=== PATIENT | male | born 1980 | race African-American/Black ===

== ENCOUNTER 2017-11-13 09:02 | Emergency (ER) | payer SELFPAY ==
[2017-11-13] MEDS ORDERED: Metoclopramide 10 MG/2 ML SDV IVPUSH ONE (09:20)
[2017-11-13] MEDS ORDERED: Sodium Chloride 0.9% 10 ML Syringe FLUSH PRN (09:20)
[2017-11-13] MEDS ORDERED: Sodium Chloride 0.9% 1,000 ML IV STA (09:20)
[2017-11-13] MEDS ORDERED: HYDROmorphone 1 MG/ML Syringe IVPUSH ONE (09:21)
[2017-11-13] MEDS ORDERED: Metoclopramide 10 MG/2 ML SDV IM ONE (09:40)
[2017-11-13] MEDS ORDERED: HYDROmorphone 1 MG/ML Syringe IM ONE ×2 (09:40→10:33)
--- NOTE | 2017-11-13 09:43 | EDM.PDOC ---
ED HPI GENERAL MEDICAL PROBLEM - General Chief Complaint: Gastrointestinal Problem Stated Complaint: [facility] Time Seen by Provider: 11/13/17 09:16 Source of Information: Reports: Patient, EMS History Limitations: Reports: No Limitations - History of Present Illness INITIAL COMMENTS - FREE TEXT/NARRATIVE: The patient presents with nausea, abdominal pain and diarrhea. He has a history of Crohn's disease for the past 20 years. He had a bowel resection about 5 years ago and he was doing good until about 6 months ago and he started having more problems. He last had a flair up over a month ago. He recently moved to the area. He has 10/10 abdominal pain in the RLQ. He has no fever, chills, cough, chest pain, shortness of breath or dysuria. Onset: Gradual Duration: Day(s): (Last night) Location: Reports: Abdomen Quality: Reports: Sharp Severity: Severe Improves with: Reports: None Worsens with: Reports: None Associated Symptoms: Reports: Nausea/Vomiting. Denies: Chest Pain, Cough, Fever /Chills, Headaches, Shortness of Breath Right Lower Abdomen Pain Score (Numeric/FACES): 10 - Related Data Allergies Allergy/AdvReac Type Severity Reaction Status Date / Time Iodinated Contrast- Oral and Allergy Tachycardia Verified 11/13/17 09:07 IV Dye ondansetron Allergy Edema Verified 11/13/17 09:07 [From Zofran (as hydrochloride)] Home Meds: Home Meds Ciprofloxacin HCl [Cipro] 500 mg PO BID #14 tablet 11/13/17 [Rx] Prednisone [IJD: predniSONE] 40 mg PO WITHBREAKFAST #10 tab 11/13/17 [Rx] Promethazine [Phenergan] 25 mg PO Q4H PRN #20 tab 11/13/17 [Rx] metroNIDAZOLE [Flagyl] 500 mg PO Q12H #14 tab 11/13/17 [Rx] oxyCODONE HCl/Acetaminophen [Percocet 5-325 mg Tablet] 1 - 2 each PO Q6HR PRN # 20 tablet 11/13/17 [Rx] Past Medical History Cardiovascular History: Reports: Other (See Below) Other Cardiovascular History: SVT Gastrointestinal History: Reports: Chronic Diarrhea, Other (See Below) Other Gastrointestinal History: Crohns Genitourinary History: Reports: Renal Calculus - Past Surgical History GI Surgical History: Reports: Other (See Below) Other GI Surgeries/Procedures: Bowel resection Male Surgical History: Reports: Lithotripsy ([facility]) Social & Family History - Tobacco Use Smoking Status *Q: Never Smoker Second Hand Smoke Exposure: No - Caffeine Use Caffeine Use: Reports: Soda - Recreational Drug Use Recreational Drug Use: No ED ROS GENERAL - Review of Systems Review Of Systems: See Below Constitutional: Reports: No Symptoms HEENT: Reports: No Symptoms Respiratory: Reports: No Symptoms Cardiovascular: Reports: No Symptoms Endocrine: Reports: No Symptoms GI/Abdominal: Reports: Abdominal Pain, Diarrhea, Nausea. Denies: Vomiting : Reports: No Symptoms Musculoskeletal: Reports: No Symptoms ED EXAM, GI/ABD - Physical Exam Exam: See Below Exam Limited By: No Limitations General Appearance: Alert, No Apparent Distress Ears: Normal External Exam Nose: Normal Inspection Head: Atraumatic, Normocephalic Neck: Normal Inspection Respiratory/Chest: No Respiratory Distress, Lungs Clear, Normal Breath Sounds Cardiovascular: Regular Rate, Rhythm, No Edema, No Murmur GI/Abdominal Exam: Soft, No Organomegaly, No Mass, Tender (Moderate tenderness to the mid abdomen) Back Exam: Normal Inspection Extremities: Normal Inspection Course - Vital Signs Last Recorded V/S: Last Vital Signs Temp 98.6 F 11/13/17 09:04 Pulse 95 11/13/17 09:04 Resp 18 11/13/17 09:04 BP 114/71 11/13/17 09:04 Pulse Ox 100 11/13/17 09:04 - Orders/Labs/Meds Orders: Active Orders 24 hr Category Date Time Status Peripheral IV Care [RC] . DIRECTED Care 11/13/17 09:21 Inactive UA W/MICROSCOPIC [URIN] Stat Lab 11/13/17 09:20 Ordered Sodium Chloride 0.9% [Saline Flush] Med 11/13/17 09:20 Active 10 ml FLUSH ASDIRECTED PRN ED Antiemetic Medication Reflex [OM.PC] Stat Oth 11/13/17 09:21 Ordered Peripheral IV Insertion Adult [OM.PC] Stat Oth 11/13/17 09:20 Ordered Medication Orders Sodium Chloride (Saline Flush) 10 ml FLUSH ASDIRECTED PRN PRN Reason: Keep Vein Open Labs: Laboratory Tests 11/13/17 11/13/17 Range/Units 09:35 09:35 WBC 7.18 (4.23-9.07) K/mm3 RBC 4.45 L (4.63-6.08) M/mm3 Hgb 13.2 L (13.7-17.5) gm/L Hct 39.9 L (40.1-51.0) % MCV 89.7 (79.0-92.2) fl MCH 29.7 (25.7-32.2) pg MCHC 33.1 (32.2-35.5) g/dl RDW Std Deviation 47.6 H (35.1-43.9) fL Plt Count 414 H (163-337) K/mm3 MPV 9.5 (9.4-12.3) fl Neut % (Auto) 76.0 H (34.0-67.9) % Lymph % (Auto) 17.4 L (21.8-53.1) % [place] % (Auto) 6.3 (5.3-12.2) % Eos % (Auto) 0.1 L (0.8-7.0) Baso % (Auto) 0.1 (0.1-1.2) % Neut # (Auto) 5.45 H (1.78-5.38) K/mm3 Lymph # (Auto) 1.25 L (1.32-3.57) K/mm3 [place] # (Auto) 0.45 (0.30-0.82) K/mm3 Eos # (Auto) 0.01 L (0.04-0.54) K/mm3 Baso # (Auto) 0.01 (0.01-0.08) K/mm3 Sodium 140 (136-145) mEq/L Potassium 3.9 (3.5-5.1) mEq/L Chloride 105 (98-107) mEq/L Carbon Dioxide 23 (21-32) mEq/L Anion Gap 15.9 H (5-15) BUN 14 (7-18) mg/dL Creatinine 0.9 (0.7-1.3) mg/dL Est Cr Clr Drug Dosing 116.03 mL/min Estimated GFR (MDRD) > 60 (>60) mL/min BUN/Creatinine Ratio 15.6 (14-18) Glucose 104 (74-106) mg/dL Calcium 9.3 (8.5-10.1) mg/dL Total Bilirubin 0.3 (0.2-1.0) mg/dL AST 14 L (15-37) U/L ALT 14 L (16-63) U/L Alkaline Phosphatase 72 (46-116) U/L Total Protein 8.0 (6.4-8.2) g/dl Albumin 3.8 (3.4-5.0) g/dl Globulin 4.2 gm/dL Albumin/Globulin Ratio 0.9 L (1-2) Lipase 397 H (73-393) U/L Meds: Medications Generic Name Dose Route Start Last Admin Trade Name Freq PRN Reason Stop Dose Admin Sodium Chloride 10 ml 11/13/17 09:20 Saline Flush FLUSH ASDIRECTED PRN Keep Vein Open Discontinued Medications Generic Name Dose Route Start Last Admin Trade Name Freq PRN Reason Stop Dose Admin Diphenhydramine HCl 50 mg 11/13/17 12:33 Benadryl IM 11/13/17 12:34 ONETIME ONE Fentanyl 100 mcg 11/13/17 12:34 Sublimaze IM 11/13/17 12:35 ONETIME ONE Hydromorphone HCl 1 mg 11/13/17 09:21 Dilaudid IVPUSH 11/13/17 09:22 ONETIME ONE Hydromorphone HCl 1 mg 11/13/17 09:40 11/13/17 09:51 Dilaudid IM 11/13/17 09:41 1 mg ONETIME ONE Administration Hydromorphone HCl 1 mg 11/13/17 10:33 Dilaudid IM 11/13/17 10:34 ONETIME ONE Hydromorphone HCl 1 mg 11/13/17 10:44 11/13/17 10:50 Dilaudid IM 11/13/17 10:45 1 mg ONETIME ONE Administration Sodium Chloride 1,000 mls @ 1,000 mls/hr 11/13/17 09:20 Normal Saline IV 11/13/17 10:19 .BOLUS STA Metoclopramide HCl 10 mg 11/13/17 09:20 Reglan IVPUSH 11/13/17 09:21 ONETIME ONE Metoclopramide HCl 10 mg 11/13/17 09:40 Reglan IM 11/13/17 09:41 ONETIME ONE Promethazine HCl 25 mg 11/13/17 09:44 11/13/17 09:50 Phenergan IM 11/13/17 09:45 25 mg ONETIME ONE Administration - Re-Assessments/Exams Free Text/Narrative Re-Assessment/Exam: 11/13/17 09:43 I ordered an IV but multiple nurses have tried and we could not get one. I then ordered dilaudid 1mg IM, reglan 10mg IV, labs and UA. 11/13/17 12:40 His CBC looks good with a normal WBC and his platelets are a little elevated at 414. His anion gap is elevated at 15.9. His lipase is slightly elevated at 397. His CT shows 2 stones in the kidneys but nothing acute. He still has pain so I ordered fentanyl 100mcg IM and some benadryl 50mg IM. I will get him on something for pain and nausea. Departure - Departure Time of Disposition: 12:50 Disposition: Home, Self-Care 01 Condition: Good Clinical Impression: Abdominal pain, Diarrhea Crohn disease Qualifiers: Gastrointestinal tract location: unspecified location Digestive disease complication type: unspecified complication Qualified Code(s): K50.919 - Crohn' s disease, unspecified, with unspecified complications Pancreatitis Qualifiers: Chronicity: acute Pancreatitis type: other Acute pancreatitis complication: no infection or necrosis Qualified Code(s): K85.80 - Other acute pancreatitis without necrosis or infection - Discharge Information Prescriptions: oxyCODONE HCl/Acetaminophen [Percocet 5-325 mg Tablet] 1 - 2 each PO Q6HR PRN # 20 tablet PRN Reason: Pain Ciprofloxacin HCl [Cipro] 500 mg PO BID #14 tablet metroNIDAZOLE [Flagyl] 500 mg PO Q12H #14 tab Prednisone [IJD: predniSONE] 40 mg PO WITHBREAKFAST #10 tab Promethazine [Phenergan] 25 mg PO Q4H PRN #20 tab PRN Reason: Nausea/Vomiting Referrals: PCP,None [Primary Care Provider] - Tiffanie Barroso [Physician] - 1 Week Forms: ED Department Discharge Additional Instructions: Take your medication as prescribed. Drink clear liquids and advance your diet as tolerated after a couple days. Please return if you are worse. Follow up with Dr Barroso. - My Orders Last 24 Hours: My Active Orders 11/13/17 09:20 UA W/MICROSCOPIC [URIN] Stat Sodium Chloride 0.9% [Saline Flush] 10 ml FLUSH ASDIRECTED PRN Peripheral IV Insertion Adult [OM.PC] Stat 11/13/17 09:21 Peripheral IV Care [RC] . DIRECTED ED Antiemetic Medication Reflex [OM.PC] Stat - Assessment/Plan Last 24 Hours: My Active Orders 11/13/17 09:20 UA W/MICROSCOPIC [URIN] Stat Sodium Chloride 0.9% [Saline Flush] 10 ml FLUSH ASDIRECTED PRN Peripheral IV Insertion Adult [OM.PC] Stat 11/13/17 09:21 Peripheral IV Care [RC] . DIRECTED ED Antiemetic Medication Reflex [OM.PC] Stat
[2017-11-13] MEDS ORDERED: Promethazine 25 MG/ML SDV IM ONE (09:44)
[2017-11-13] MEDS ORDERED: HYDROmorphone 0.5 MG/0.5 ML SYRINGE IM ONE (10:44)
--- NOTE | 2017-11-13 12:15 | CT ---
CT abdomen and pelvis Technique: Multiple axial sections were obtained from above the dome of the diaphragm inferiorly through the pubic symphysis. Intravenous and oral contrast was not utilized which diminishes details of solid organs and bowel. Comparison: No previous study. Findings: Kidneys show multiple small calcifications. No ureteral dilatation or ureteral stone is seen. Visualized lung bases show nothing acute. Noncontrast appearance of the liver appears within normal limits. Spleen appears within normal limits. Gallbladder is slightly distended showing no calcified gallstones. Pancreas shows no discrete abnormality. Abdominal aorta shows no aneurysmal dilatation. No retroperitoneal adenopathy is seen. Surgical anastomotic sutures are seen at the junction of the ileum and cecum. No pelvic mass or adenopathy is seen. No discrete inflammatory change is seen within the mesentery. Bone window setting appears within normal limits. Incidental fat-containing umbilical hernia is seen. Impression: 1. Small nonobstructing calculi within both kidneys. No ureteral dilatation or ureteral stone is seen. 2. Previous surgery at the junction of the ileum and cecum. 3. Other incidental findings. Nothing acute is appreciated on noncontrast CT study of the abdomen and pelvis. Diagnostic code #2
[2017-11-13] MEDS ORDERED: diphenhydrAMINE 50 MG/ML SDV IM ONE (12:33)
[2017-11-13] MEDS ORDERED: fentaNYL 100 MCG/2 ML SDV IM ONE (12:34)
== END 2017-11-13 13:05 | disposition home or self-care (01) ==
LOC: JD.ED 09:02
DX: K50.919 Crohn's disease, unspecified, with unspecified complications (principal); K85.80 Other acute pancreatitis without necrosis or infection; Z91.041 Radiographic dye allergy status; Z88.8 Allergy status to other drugs, medicaments and biological substances
CPT/HCPCS: 36415; 74176; 80053; 83690; 85025; 96372; 99285; J1170; J1200; J2550; J3010; J7050

== ENCOUNTER 2017-11-14 20:09 | Emergency (ER) | payer SELFPAY ==
[2017-11-14] MEDS ORDERED: Metoclopramide 10 MG/2 ML SDV IVPUSH STA (20:46)
[2017-11-14] MEDS ORDERED: HYDROmorphone 0.5 MG/0.5 ML SYRINGE IVPUSH STA (20:46)
--- NOTE | 2017-11-14 20:49 | EDM.PDOC ---
ED HPI GENERAL MEDICAL PROBLEM - General Chief Complaint: Gastrointestinal Problem Stated Complaint: CLARITZA Time Seen by Provider: 11/14/17 20:21 Source of Information: Reports: Patient, Old Records History Limitations: Reports: No Limitations - History of Present Illness INITIAL COMMENTS - FREE TEXT/NARRATIVE: Medical records indicate that the patient was seen in this ED on yesterday, 11/13, for 10/10 abdominal pain in the right lower quadrant, nausea, and diarrhea. No fever or chills. No dysuria. The patient reported that he has a 20 year history of Crohn disease, status post a bowel resection about 5 years ago. He stated that he was doing well up until about 6 months ago, when he started having more problems. His last flare was about a month ago. He stated that he had recently moved to this area from [place], [place]. Workup in the ED included a CBC, CMP, lipase level, and a CT scan of his abdomen and pelvis WITHOUT oral or IV contrast. His workup was unremarkable, although his lipase was slightly elevated at 397. He received 100 g IV fentanyl, a total of 4 mg IV Dilaudid, 20 mg IV Reglan, 25 mg IM Phenergan, and 50 mg IM Benadryl, along with 1 L NS. He was discharged home with prescriptions for 20 tablets of Percocet 5/325, 10 tablets of prednisone 40 mg, 14 tablets of ciprofloxacin 500 mg BID, 14 tablets of metronidazole 500 mg BID, and 20 tablets of Phenergan 25 mg, every 4 hours. He was referred to Dr. Barroso for follow-up. The patient now returns, stating that he has continuation of the same symptoms, with the addition of blood in his emesis. He states that his abdominal pain is sharp, throbbing, and felt all over his abdomen. He denies having bloody diarrhea. No recent fever. He states that he has had Crohn disease for about 20 years, but that he moved to this area recently from [place], [place], and that he is not currently managed by anyone. He states that he has not previously been on Humira or Remicade, although he has been on mesalamine and steroids in the past. Review of the [place] PMPi finds that the patient has 60 prescriptions, all for opioids, by 39 prescribers, filled a 24 pharmacies, all in [place]. Of note, the patient was prescribed Suboxone on 2 prior occasions. Abdominal Pain Score (Numeric/FACES): 10 - Related Data Allergies Allergy/AdvReac Type Severity Reaction Status Date / Time Iodinated Contrast- Oral and Allergy Tachycardia Verified 11/13/17 09:07 IV Dye ondansetron Allergy Edema Verified 11/13/17 09:07 [From Zofran (as hydrochloride)] Home Meds: Home Meds Ciprofloxacin HCl [Cipro] 500 mg PO BID #14 tablet 11/13/17 [Rx] Prednisone [IJD: predniSONE] 40 mg PO WITHBREAKFAST #10 tab 11/13/17 [Rx] Promethazine [Phenergan] 25 mg PO Q4H PRN #20 tab 11/13/17 [Rx] metroNIDAZOLE [Flagyl] 500 mg PO Q12H #14 tab 11/13/17 [Rx] oxyCODONE HCl/Acetaminophen [Percocet 5-325 mg Tablet] 1 - 2 each PO Q6HR PRN # 20 tablet 11/13/17 [Rx] Past Medical History Cardiovascular History: Reports: Arrhythmia (Episode of SVT) Gastrointestinal History: Reports: Inflammatory Bowel Disease (Crohn disease) Genitourinary History: Reports: Renal Calculus - Past Surgical History GI Surgical History: Reports: Appendectomy (Incidental, with the small bowel resection), Other (See Below) (Small bowel resection, including terminal ileum) Male Surgical History: Reports: Lithotripsy (ESWL) Social & Family History - Family History Family Medical History: Noncontributory - Tobacco Use Smoking Status *Q: Never Smoker Second Hand Smoke Exposure: No - Caffeine Use Caffeine Use: Reports: Soda - Alcohol Use Alcohol Use History: No - Recreational Drug Use Recreational Drug Use: Yes Drug Use in Last 12 Months: Yes Recreational Drug Type: Reports: Other (see below) (Opioids - pt previously on Suboxone) - Living Situation & Occupation Living situation: Reports: Single, with Significant Other (Girlfriend), with Family (2 kids) Occupation: Unemployed ED ROS GENERAL - Review of Systems Review Of Systems: ROS reveals no pertinent complaints other than HPI. ED EXAM, GI/ABD - Physical Exam Exam: See Below Exam Limited By: No Limitations General Appearance: Alert, WD/WN, No Apparent Distress Eyes: Bilateral: Normal Appearance, EOMI Ears: Normal External Exam, Hearing Grossly Normal Nose: Normal Inspection, No Blood Throat/Mouth: Normal Inspection, Normal Lips, Normal Voice, No Airway Compromise Head: Atraumatic, Normocephalic Neck: Normal Inspection, Full Range of Motion Respiratory/Chest: No Respiratory Distress, Lungs Clear, Normal Breath Sounds, No Accessory Muscle Use Cardiovascular: Normal Peripheral Pulses, Regular Rate, Rhythm, No Edema, No Gallop, No JVD, No Murmur, No Rub GI/Abdominal Exam: Normal Bowel Sounds, Soft, No Organomegaly, No Distention, No Abnormal Bruit, No Mass, Tender (Generalized), Other (Well-healed lower midline surgical wound) (Male) Exam: Deferred Rectal (Males) Exam: Deferred Back Exam: Normal Inspection, Full Range of Motion. No: CVA Tenderness (L), CVA Tenderness (R) Extremities: Normal Inspection, Normal Range of Motion, No Pedal Edema, Normal Capillary Refill Neurological: Alert, Oriented, Normal Cognition, No Motor/Sensory Deficits Psychiatric: Normal Affect Skin Exam: Warm, Dry, Intact, Normal Color, No Rash Course - Vital Signs Last Recorded V/S: Last Vital Signs Temp 36.7 C 11/14/17 20:14 Pulse 87 11/14/17 20:14 Resp 16 11/14/17 20:14 BP 121/77 11/14/17 20:14 Pulse Ox 100 11/14/17 20:14 - Orders/Labs/Meds Orders: Active Orders 24 hr Category Date Time Status Abdomen 1V Upright [CR] Stat Exams 11/14/17 23:34 Taken C DIFFICILE BY PCR W/NAP1 [MOLEC] Stat Lab 11/14/17 23:33 Ordered UA W/MICROSCOPIC [URIN] Stat Lab 11/14/17 21:15 Ordered Promethazine [Phenergan] 12.5 mg Med 11/15/17 06:38 Active Sodium Chloride 0.9% [Normal Saline] 50 ml IV ONETIME Sodium Chloride 0.9% [Normal Saline] 1,000 ml Med 11/14/17 21:00 Active IV ASDIRECTED Nasogastric Orogastric Tube Insertion [OM.PC] Routine Oth 11/14/17 23:35 Ordered Medication Orders Sodium Chloride (Normal Saline) 1,000 mls @ 150 mls/hr IV ASDIRECTED EDEN Last Admin: 11/14/17 21:26 Dose: 150 mls/hr Promethazine HCl 12.5 mg/ (Sodium Chloride) 50.5 mls @ 100 mls/hr IV ONETIME ONE Stop: 11/15/17 07:08 Last Admin: 11/15/17 06:48 Dose: 100 mls/hr Labs: Laboratory Tests 11/14/17 11/14/17 11/14/17 Range/Units 21:15 21:23 21:23 WBC 7.99 (4.23-9.07) K/mm3 RBC 4.44 L (4.63-6.08) M/mm3 Hgb 13.1 L (13.7-17.5) gm/L Hct 40.5 (40.1-51.0) % MCV 91.2 (79.0-92.2) fl MCH 29.5 (25.7-32.2) pg MCHC 32.3 (32.2-35.5) g/dl RDW Std Deviation 48.6 H (35.1-43.9) fL Plt Count 391 H (163-337) K/mm3 MPV 9.6 (9.4-12.3) fl Neutrophils % (Manual) 48 (40-60) % Band Neutrophils % 0 (0-10) % Lymphocytes % (Manual) 36 (20-40) % Atypical Lymphs % 0 % Monocytes % (Manual) 9 (2-10) % Eosinophils % (Manual) 6 (0.8-7.0) % Basophils % (Manual) 1 (0.2-1.2) Toxic Granulation Few Platelet Estimate Adequate Plt Morphology Comment Normal Hypochromasia 1+ slight Poikilocytosis 1+ slight Anisocytosis 2+ moder RBC Morph Comment Not Reportable Sodium 141 (136-145) mEq/L Potassium 4.2 (3.5-5.1) mEq/L Chloride 105 (98-107) mEq/L Carbon Dioxide 29 (21-32) mEq/L Anion Gap 11.2 (5-15) BUN 19 H (7-18) mg/dL Creatinine 1.0 (0.7-1.3) mg/dL Est Cr Clr Drug Dosing 107.72 mL/min Estimated GFR (MDRD) > 60 (>60) mL/min BUN/Creatinine Ratio 19.0 H (14-18) Glucose 85 (74-106) mg/dL Calcium 9.3 (8.5-10.1) mg/dL Magnesium 1.8 (1.8-2.4) mg/dl Total Bilirubin 0.3 (0.2-1.0) mg/dL AST 32 (15-37) U/L ALT 30 (16-63) U/L Alkaline Phosphatase 81 (46-116) U/L Total Protein 7.8 (6.4-8.2) g/dl Albumin 3.8 (3.4-5.0) g/dl Globulin 4.0 gm/dL Albumin/Globulin Ratio 1.0 (1-2) Lipase 591 H (73-393) U/L Urine Color Yellow (Yellow) Urine Appearance Clear (Clear) Urine pH 7.0 (5.0-8.0) Ur Specific [place] 1.025 (1.005-1.030) Urine Protein Negative (Negative) Urine Glucose (UA) Negative (Negative) Urine Ketones Negative (Negative) Urine Occult Blood Negative (Negative) Urine Nitrite Negative (Negative) Urine Bilirubin Negative (Negative) Urine Urobilinogen 0.2 (0.2-1.0) Ur Leukocyte Esterase Negative (Negative) Urine RBC 0-5 (0-5) /hpf Urine WBC 0-5 (0-5) /hpf Ur Epithelial Cells 0-5 (0-5) /hpf Amorphous Sediment Moderate H (NOT SEEN) /hpf Urine Bacteria Few (FEW) /hpf Urine Mucus Not seen (FEW) /hpf Meds: Medications Generic Name Dose Route Start Last Admin Trade Name Freq PRN Reason Stop Dose Admin Sodium Chloride 1,000 mls @ 150 mls/hr 11/14/17 21:00 11/14/17 21:26 Normal Saline IV 150 mls/hr ASDIRECTED EDEN Administration Promethazine HCl 12.5 mg/ 50.5 mls @ 100 mls/hr 11/15/17 06:38 11/15/17 06:48 Sodium Chloride IV 11/15/17 07:08 100 mls/hr ONETIME ONE Administration Discontinued Medications Generic Name Dose Route Start Last Admin Trade Name Freq PRN Reason Stop Dose Admin Diphenhydramine HCl 50 mg 11/14/17 21:36 11/14/17 21:43 Benadryl IVPUSH 11/14/17 21:37 50 mg ONETIME ONE Administration Hydromorphone HCl 1 mg 11/14/17 20:46 11/14/17 21:24 Dilaudid IVPUSH 11/14/17 20:47 1 mg ONETIME STA Administration Promethazine HCl 25 mg/ Sodium 51 mls @ 100 mls/hr 11/15/17 00:17 11/15/17 00 :36 Chloride IV 11/15/17 00:47 100 mls/hr ONETIME ONE Administration Methylprednisolone Sodium Succinate 125 mg 11/15/17 01:20 11/15/17 01:26 Solu-Medrol IVPUSH 11/15/17 01:21 125 mg ONETIME ONE Administration Metoclopramide HCl 10 mg 11/14/17 20:46 11/14/17 21:30 Reglan IVPUSH 11/14/17 20:47 Not Given ONETIME STA - Re-Assessments/Exams Free Text/Narrative Re-Assessment/Exam: 11/14/17 20:49 The patient returns with continued symptoms of generalized abdominal pain, nausea, vomiting, and watery diarrhea. No recent fever. I have ordered blood work, IV fluid, Dilaudid, and Reglan, however, since he just had a negative CT scan of the abdomen and pelvis performed yesterday, I have not repeated that. 11/14/17 21:25 Notified by Pardeep JAMES that the patient is refusing the Reglan that I ordered, stating that it makes him feel weird. The patient reports that Zofran causes edema, and he is already taking Phenergan, therefore I cannot give him additional at this time. 11/14/17 21:36 The patient is requesting Benadryl for nausea. He states that he received it yesterday, to good effect. I have ordered 50 mg IVP. 11/14/17 23:36 Case discussed with [facility] at 23:06. Case then discussed with Dr. Johnson, Station Mechanic Helper at [facility], at 23:09. He agrees that this is not likely a Crohn's flare, that the patient is likely drug seeking. Nevertheless, he recommends that we rule out C. difficile. If negative, the patient could receive steroids, if positive, he should not. If the patient is continuing to complain of nausea, he recommends an NG tube, NPO, and observation overnight with IV fluid. Alternately, he would like the patient to follow-up in their clinic where he could receive a colonoscopy to evaluate for inflammation and/or strictures. He recommends that the colonoscopy be done by a Station Mechanic Helper, not a surgeon. The above was then discussed with the patient. He acknowledges that he has not had any emesis or diarrhea while here in the ED, but is willing to try to give us a stool sample. He has agreed to receiving an NG tube. Case then discussed with Dr. Longoria at 23:27. At this time, she is not willing to place the patient into observation, as it appears that he is drug-seeking. We will see if the patient is able to provide a stool sample. I will order an upright abdominal radiograph to rule out small bowel obstruction, and an NG tube. While discussing the case with Dr. Longoria, I was notified by Pardeep JAMES that the patient would like additional pain medication. 11/14/17 23:40 Notified by Pardeep JAMES that the patient was not able to provide a stool sample. This essentially rules out C. difficile, and I can therefore offer IV steroids as a non-narcotic means to control his pain. 11/15/17 00:17 The patient has continued to ask for pain medication, therefore I confronted the patient about the findings on the [place] with Pardeep JAMES present. With respect to the Suboxone, he stated that "It wasn't me", although he did not deny the other opioids. There are a couple of problems with that. Suboxone can be prescribed only by prescribers with a special CHAN number - in this case, by Dr. Braulio Anderson, a Psychiatrist and Addiction Medicine specialist at [facility], who would have carefully checked the patient's identification. The other problem is that the patient told Dr. Quarles yesterday , and me tonight, that he had been essentially symptom-free, up until about a month ago, following his small bowel resection in 2012. But the PMPi demonstrates that the patient has been prescribed opioids as far back as 2014 - as far back as the [employer]ENT can search. If the patient were symptom-free, why would he have needed continuous opioids? I explained the above plan of getting an upright abdominal radiograph, a NG tube , and IV steroids, but I explained that given the information that I have at hand, including his unremarkable workups yesterday and today, and the PMPi information, that I do not see an indication for additional narcotics. The patient became hostile. 11/15/17 01:23 The patient refused the NG tube, however, I have ordered Solu-Medrol 125 mg IVP. Upright abdominal radiograph still pending. 11/15/17 01:40 Upright abdominal radiograph appears to demonstrate a nonspecific bowel gas pattern. No other findings. Formal read per the Radiologist pending. 11/15/17 06:49 The patient has received IV fluid in the ED overnight. He received additional Phenergan this morning. I believe he can safely be discharged home. I will refer him to Dr. Johnson for follow-up. Departure - Departure Time of Disposition: 06:50 Disposition: Home, Self-Care 01 Condition: Fair Clinical Impression: Abdominal pain, Nausea, Drug-seeking behavior - Discharge Information Instructions: Abdominal Pain, Adult, [id number], Nausea, Adult, [id number] Referrals: Leno Johnson MD [Ordering Only Provider] - Forms: ED Department Discharge Additional Instructions: You were seen in the emergency room for continued abdominal pain and nausea. Workup in the ER included blood work, a urinalysis, and an x-ray of your abdomen. Your entire workup was unremarkable and does not explain the cause of your symptoms. In addition to IV fluid, pain medication, and anti-nausea medicine, you received IV steroids. Your case was discussed with the Station Mechanic Helper Dr. Johnson. He would like you to follow-up to receive a colonoscopy. Continue to take the medications that you were prescribed on 01/13/2018. If any other problems, please do not hesitate to return to the ER. - My Orders Last 24 Hours: My Active Orders 11/14/17 21:00 Sodium Chloride 0.9% [Normal Saline] 1,000 ml IV ASDIRECTED 11/14/17 21:15 UA W/MICROSCOPIC [URIN] Stat 11/14/17 23:33 C DIFFICILE BY PCR W/NAP1 [MOLEC] Stat 11/14/17 23:34 Abdomen 1V Upright [CR] Stat 11/14/17 23:35 Nasogastric Orogastric Tube Insertion [OM.PC] Routine 11/15/17 06:38 Promethazine [Phenergan] 12.5 mg Sodium Chloride 0.9% [Normal Saline] 50 ml IV ONETIME - Assessment/Plan Last 24 Hours: My Active Orders 11/14/17 21:00 Sodium Chloride 0.9% [Normal Saline] 1,000 ml IV ASDIRECTED 11/14/17 21:15 UA W/MICROSCOPIC [URIN] Stat 11/14/17 23:33 C DIFFICILE BY PCR W/NAP1 [MOLEC] Stat 11/14/17 23:34 Abdomen 1V Upright [CR] Stat 11/14/17 23:35 Nasogastric Orogastric Tube Insertion [OM.PC] Routine 11/15/17 06:38 Promethazine [Phenergan] 12.5 mg Sodium Chloride 0.9% [Normal Saline] 50 ml IV ONETIME
[2017-11-14] MEDS ORDERED: Sodium Chloride 0.9% 1,000 ML IV SCH (21:00)
--- NOTE | 2017-11-14 21:27 | PCM.SN ---
- Free Text/Narrative Note: 11/14/[id number] IV started 20 g left wrist area times 1 attempt.Greg MOREIRA
[2017-11-14] MEDS ORDERED: diphenhydrAMINE 50 MG/ML SDV IVPUSH ONE (21:36)
[2017-11-15] MEDS ORDERED: Promethazine 25 MG in Sodium Chloride 0.9% 50 ML IV ONE (00:17)
[2017-11-15] MEDS ORDERED: methylPREDNISolone Sodium Succinate 125 MG/2 ML SDV IVPUSH ONE (01:20)
[2017-11-15] MEDS ORDERED: Promethazine 12.5 MG in Sodium Chloride 0.9% 50 ML IV ONE (06:38)
--- NOTE | 2017-11-15 07:22 | CR ---
Abdomen: Supine view of the abdomen was obtained. Comparison: Prior CT exam of 11/13/17. Bowel gas pattern is normal. Previous small renal calculi are not seen on this study which are too small to visualize. No calcification is seen within bladder. Bony structures are unremarkable. No soft tissue abnormality is seen. Impression: 1. Nothing acute is seen on supine abdominal x-ray. Diagnostic code #1
== END 2017-11-15 07:22 | disposition home or self-care (01) ==
LOC: JD.ED 20:09
DX: R10.31 Right lower quadrant pain (principal); R11.0 Nausea; Z76.5 Malingerer [conscious simulation]; Z91.041 Radiographic dye allergy status; Z88.8 Allergy status to other drugs, medicaments and biological substances; Z83.79 Family history of other diseases of the digestive system
CPT/HCPCS: 36415; 74018; 80053; 81001; 83690; 83735; 85025; 96361; 96365; 96375; 99285; J1170; J1200; J2550; J2930; J7040; J7050; 99284

== ENCOUNTER 2018-01-11 17:29 | Emergency (ER) | payer MEDICAID ==
[2018-01-11] MEDS ORDERED: Sodium Chloride 0.9% 10 ML Syringe FLUSH PRN (18:11)
[2018-01-11] MEDS ORDERED: Sodium Chloride 0.9% 1,000 ML IV SCH (18:15)
[2018-01-11] MEDS ORDERED: diphenhydrAMINE 50 MG/ML SDV IVPUSH ONE (18:26)
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
[2018-01-11] MEDS ORDERED: HYDROmorphone 0.5 MG/0.5 ML SYRINGE IVPUSH ONE (19:18)
[2018-01-11] MEDS ORDERED: Diatrizoate Meglumine/Diatrizoate Sodium 37% 120 ML Bottle PO ONE (19:40)
--- NOTE | 2018-01-12 09:18 | CR ---
Abdomen: Supine and upright views of the abdomen were obtained. Comparison: Prior abdominal x-ray of 11/15/17. Bowel gas pattern appears normal. No abnormal calcifications or soft tissue abnormality is seen. No free air is seen. Bony structures appear within normal limits for the patient's age. Impression: 1. Nothing acute is seen on two-view abdominal x-ray. Diagnostic code #1
--- NOTE | 2018-01-12 09:18 | CT ---
CT abdomen and pelvis Technique: Multiple axial sections were obtained from the top of the liver inferiorly to the pubic symphysis. Intravenous contrast not utilized. Oral contrast has been given. Comparison: Prior CT abdomen and pelvis exam of 11/13/17. Findings: Visualized lung bases show nothing acute. Visualized noncontrast portions of the liver and spleen appear within normal limits. Adrenal glands show no nodule. Pancreas is normal. Gallbladder contains no calcified gallstones. Multiple nonobstructing calculi are seen within both kidneys measuring less than 1 cm in size. Aorta shows no aneurysmal dilatation. No retroperitoneal adenopathy is seen. No pelvic mass or adenopathy is seen. No inflammatory change or free fluid is seen within the abdomen or pelvis. Ureters show no dilatation or ureteral calculi. Appendix is not definitely visualized. Bone window settings were reviewed which appear within normal limits for the patient's age. Small fat-containing umbilical hernia is noted. Impression: 1. Nonobstructing calculi within both kidneys. These findings were seen on prior CT exam. No ureteral dilatation or ureteral stone is seen. 2. Other incidental findings. Nothing acute is appreciated. Diagnostic code #2 I agree with preliminary report from [facility], finalized at 01/11/18, 9:51 PM Central Time
== END 2018-01-11 21:41 | disposition home or self-care (01) ==
LOC: JD.ED 17:29
DX: K50.919 Crohn's disease, unspecified, with unspecified complications (principal); Z91.041 Radiographic dye allergy status; Z88.8 Allergy status to other drugs, medicaments and biological substances; Z79.899 Other long term (current) drug therapy
CPT/HCPCS: 36415; 74019; 74176; 80053; 80306; 81001; 83690; 85007; 85027; 86140; 96361; 96374; 96375; 99284; J1170; J1200; J7040; J7050; Q9963

== ENCOUNTER 2018-09-18 19:18 | Emergency (ER) | payer MEDICAID ==
[2018-09-18] MEDS ORDERED: Sodium Chloride 0.9% 1,000 ML IV STA (19:42)
[2018-09-18] MEDS ORDERED: Metoclopramide 10 MG/2 ML SDV IVPUSH ONE (19:42)
[2018-09-18] MEDS ORDERED: Sodium Chloride 0.9% 10 ML Syringe FLUSH PRN (19:42)
[2018-09-18] MEDS ORDERED: HYDROmorphone 1 MG/ML Syringe IVPUSH ONE ×2 (19:44→21:24)
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
[2018-09-18] MEDS ORDERED: diphenhydrAMINE 50 MG/ML SDV IVPUSH ONE (20:28)
--- NOTE | 2018-09-19 07:33 | CR ---
Abdominal series: Supine and upright views of the abdomen were obtained as well as frontal view of the chest. Comparison: Prior abdominal x-ray of 01/11/18. Heart size and mediastinum are within normal limits. Lungs are clear. No free air is seen. Bowel gas pattern appears within normal limits. No abnormal calcifications or soft tissue abnormality is seen. Bony structures are unremarkable. Impression: 1. Nothing acute is seen on abdominal series. Diagnostic code #1
== END 2018-09-18 21:48 | disposition home or self-care (01) ==
LOC: JD.ED 19:18
DX: R10.32 Left lower quadrant pain (principal); R11.2 Nausea with vomiting, unspecified; Z90.49 Acquired absence of other specified parts of digestive tract; Z88.8 Allergy status to other drugs, medicaments and biological substances
CPT/HCPCS: 36415; 74022; 80053; 83690; 85025; 86140; 96361; 96374; 96375; 96376; 99284; J1170; J1200; J7040

== ENCOUNTER 2018-12-26 13:01 | Emergency (ER) | payer MEDICAID ==
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
--- NOTE | 2018-12-26 15:09 | CR ---
Cervical spine: AP, lateral, odontoid and swimmer's views of the cervical spine were obtained. Comparison: No prior cervical spine imaging. Mild scoliosis is seen. Minimal disc space narrowing is noted at C3-C4. Other disc spaces are maintained. Vertebral body heights are maintained. Prevertebral soft tissues are normal. No subluxation or fracture is seen. Impression: 1. Slight scoliosis. Minimal disc space narrowing at C3-C4. 2. No additional abnormality is seen on cervical spine exam. Diagnostic code #2
--- NOTE | 2018-12-26 15:09 | CR ---
Right shoulder: Three views of the right shoulder were obtained. Comparison: No prior right shoulder study. Glenohumeral and acromioclavicular joints appear within normal limits. No fracture, dislocation or other bony abnormality is seen. Impression: 1. No abnormality is identified on right shoulder study. Diagnostic code #1
== END 2018-12-26 15:53 | disposition home or self-care (01) ==
LOC: JD.ED 13:01
DX: M25.511 Pain in right shoulder (principal); Z90.49 Acquired absence of other specified parts of digestive tract; Z91.041 Radiographic dye allergy status
CPT/HCPCS: 72040; 72040-26; 73030-26-RT; 73030-RT; 99283; 99283-25

== ENCOUNTER 2019-04-12 00:08 | Emergency (ER) | payer SELFPAY ==
[2019-04-12] MEDS ORDERED: Sodium Chloride 0.9% 10 ML Syringe FLUSH PRN (00:25)
[2019-04-12] MEDS ORDERED: Sodium Chloride 0.9% 1,000 ML IV STA (00:25)
[2019-04-12] MEDS ORDERED: HYDROmorphone 1 MG/ML Syringe IVPUSH ONE ×2 (00:26→01:56)
[2019-04-12] MEDS ORDERED: Metoclopramide 10 MG/2 ML SDV IVPUSH ONE (00:26)
[2019-04-12] MEDS ORDERED: diphenhydrAMINE 50 MG/ML SDV IVPUSH ONE (00:44)
[2019-04-12] MEDS ORDERED: HYDROmorphone 0.5 MG/0.5 ML Syringe IVPUSH ONE (03:19)
[2019-04-12] MEDS ORDERED: methylPREDNISolone Sodium Succinate 125 MG/2 ML SDV IVPUSH ONE (03:20)
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
== END 2019-04-12 03:44 | disposition home or self-care (01) ==
LOC: JD.ED 00:08
DX: K50.919 Crohn's disease, unspecified, with unspecified complications (principal); R11.0 Nausea; Z88.8 Allergy status to other drugs, medicaments and biological substances; Z91.041 Radiographic dye allergy status; Z90.49 Acquired absence of other specified parts of digestive tract
CPT/HCPCS: 36415; 80053; 81001; 83690; 85025; 96361; 96374; 96375; 96376; 99284; J1170; J1200; J2930; J7040; 99283

== ENCOUNTER 2019-05-03 13:17 | Emergency (ER) | payer MEDICAID ==
[2019-05-03] MEDS ORDERED: Ketorolac 60 MG/2 ML SDV IM ONE (14:12)
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
== END 2019-05-03 14:29 | disposition home or self-care (01) ==
LOC: JD.ED 13:17
DX: K04.7 Periapical abscess without sinus (principal); Z88.8 Allergy status to other drugs, medicaments and biological substances; Z91.041 Radiographic dye allergy status
CPT/HCPCS: 96372; 99282; J1885

== ENCOUNTER 2019-05-04 14:22 | Emergency (ER) | payer MEDICAID ==
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
== END 2019-05-04 16:20 | disposition home or self-care (01) ==
LOC: JD.ED 14:22
DX: K04.7 Periapical abscess without sinus (principal); Z88.8 Allergy status to other drugs, medicaments and biological substances; Z91.041 Radiographic dye allergy status
CPT/HCPCS: 99282; 99283

== ENCOUNTER 2020-02-13 09:59 | Emergency (ER) | payer MEDICAID | END 2020-02-13 10:35 | LOC: JD.ED 09:59 | DX: Z53.21 Procedure and treatment not carried out due to patient leaving prior to being seen by health care provider (principal) ==

== ENCOUNTER 2020-03-08 11:23 | Emergency (ER) | payer MEDICAID ==
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
[2020-03-08] MEDS ORDERED: HYDROmorphone 1 MG/ML Syringe IVPUSH ONE ×2 (12:01→13:10)
[2020-03-08] MEDS ORDERED: Metoclopramide 10 MG/2 ML SDV IVPUSH ONE (12:01)
[2020-03-08] MEDS ORDERED: Sodium Chloride 0.9% 1,000 ML IV SCH (12:15)
[2020-03-08] MEDS ORDERED: diphenhydrAMINE 50 MG/ML SDV IVPUSH ONE (12:44)
[2020-03-08] MEDS ORDERED: Ketorolac 30 MG/ML SDV IVPUSH SCH (12:45)
--- NOTE | 2020-03-09 13:45 | CT ---
CT abdomen and pelvis Technique: Multiple axial sections were obtained from above the dome of the diaphragm inferiorly through the pubic symphysis. Intravenous and oral contrast not utilized. Study has been performed as a ureteral stone protocol. Comparison: Prior abdominal and pelvic CT study of 06/03/18. Findings: Multiple nonobstructing calculi are seen within both kidneys. Proximal left ureter as well as the collecting system within the left kidney are dilated. These findings are caused by an obstructing stone within the proximal left ureter measuring approximately 6.4 mm. No other abnormal calcifications are seen along the course of the ureters. No bladder calculi are seen. Visualized lung bases show nothing acute. Liver shows minimal low density lesion within the right lobe measuring about 9 mm. This shows Hounsfield unit measurements of a cyst on the reconstructed coronal images. No additional liver abnormality is appreciated. Spleen appears within normal limits. Pancreas shows no discrete abnormality. Gallbladder contains no calcified gallstones. Aorta shows no aneurysm. Adrenal glands show no nodule. No retroperitoneal adenopathy or mesenteric abnormalities are seen. Previous surgery noted off the tip of the cecum most likely from prior appendectomy. No pelvic mass or adenopathy is seen. No free fluid or inflammatory change is seen. Impression: 1. 6.4 mm obstructing calculus within the proximal left ureter causing proximal hydronephrosis. 2. Nonobstructing calculi within both kidneys. 3. Small low density finding having Hounsfield unit measurements of a cyst on the reconstructed coronal images within the right lobe of the liver. Diagnostic code #3 This report was dictated in MDT I agree with preliminary report from [facility], finalized on 03/08/20, 2:15 PM Central Daylight Time
== END 2020-03-08 15:15 | disposition home or self-care (01) ==
LOC: JD.ED 11:23
DX: N23 Unspecified renal colic (principal); Z91.041 Radiographic dye allergy status; Z88.8 Allergy status to other drugs, medicaments and biological substances; Z90.49 Acquired absence of other specified parts of digestive tract; Z79.899 Other long term (current) drug therapy
CPT/HCPCS: 36415; 74176; 80053; 85025; 96374; 96375; 96376; 99284; J1170; J1200; J1885; J7030

== ENCOUNTER 2020-03-13 10:49 | Emergency (ER) | payer MEDICAID ==
[2020-03-13] MEDS ORDERED: Ketorolac 30 MG/ML SDV IVPUSH ONE (11:03)
[2020-03-13] MEDS ORDERED: HYDROmorphone 1 MG/ML Syringe IVPUSH ONE ×2 (11:03→13:28)
[2020-03-13] MEDS ORDERED: diphenhydrAMINE 50 MG/ML SDV IVPUSH ONE (11:03)
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
[2020-03-13] MEDS ORDERED: Dextrose 5%-0.9% NaCl 1,000 ML IV SCH (11:15)
--- NOTE | 2020-03-13 16:54 | CR ---
Abdomen: Supine view of the abdomen was obtained. Comparison: Prior abdominal x-ray of 01/11/18. Calcification is seen with the left mid abdomen measuring approximately 5 mm suspicious for mid left ureteral stone. Calcification is noted overlying the left kidney measuring about 7 mm likely due to additional nonobstructing stone. Bowel gas pattern is normal. Bony structures are unremarkable. No soft tissue abnormality is seen. Impression: 1. Calcification within the mid left abdomen measuring 5 mm suspicious for mid left ureteral stone. 2. Nonobstructing calculus within the left kidney. 3. No other acute finding is seen. Diagnostic code #3 This report was dictated in MDT
== END 2020-03-13 14:46 | disposition home or self-care (01) ==
LOC: JD.ED 10:49
DX: N20.0 Calculus of kidney (principal); Z88.8 Allergy status to other drugs, medicaments and biological substances; Z91.041 Radiographic dye allergy status
CPT/HCPCS: 36415; 74018; 80053; 81001; 84550; 85025; 86140; 96374; 96375; 96376; 99284; J1170; J1200; J1885; J7042; 99283

== ENCOUNTER 2020-05-19 13:49 | Emergency (ER) | payer MEDICAID ==
[2020-05-19] MEDS ORDERED: Promethazine 25 MG Tab PO ONE (14:22)
[2020-05-19] MEDS ORDERED: Acetaminophen/oxyCODONE 325-5 MG Tab PO ONE ×2 (14:22→17:00)
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
[2020-05-19] MEDS ORDERED: Tamsulosin 0.4 MG Cap.ER PO ONE (16:03)
--- NOTE | 2020-05-22 14:13 | CT ---
"PROCEDURE INFORMATION: Exam: CT Abdomen And Pelvis Without Contrast Exam date and time: 05/19/2020 3:35 PM Age: 39 years old Clinical indication: Patient HX: Previous history of kidney stones, left sided anterior abdominal pain intermittent ongoing 2 months; Additional info: Prior CT report scanned into previous exam TECHNIQUE: Imaging protocol: Computed tomography of the abdomen and pelvis without contrast. COMPARISON: CT Abdomen Pelvis wo Cont 03/08/2020 12:05 PM FINDINGS: Mediastinal space: A small sliding hiatal hernia is present. Liver: Normal. No mass. Gallbladder and bile ducts: Normal. No calcified stones. No ductal dilation. Pancreas: Normal. No ductal dilation. Spleen: Normal. No splenomegaly. Adrenal glands: Normal. No mass. Kidneys and ureters: Bilateral nonobstructive renal calculi measuring up to 7 mm in the left kidney. There is a 6 mm. obstructive ureteral calculus along with a 2-3 mm ureteral calculus just proximal, both located in the distal left ureter resulting in mild proximal hydroureteronephrosis. There is mild periureteral and perinephric stranding. No urinoma demonstrated. Stomach and bowel: Bowel sutures in the proximal right colon. Appendix: No evidence of appendicitis. Intraperitoneal space: Unremarkable. No free air. No significant fluid collection. Vasculature: Unremarkable. No abdominal aortic aneurysm. Lymph nodes: Unremarkable. No enlarged lymph nodes. Urinary bladder: Unremarkable as visualized. Reproductive: Unremarkable as visualized. Bones/joints: Unremarkable. No acute fracture. TOY RDZ | Final Radiology Report CONFIDENTIALITY STATEMENT This report is intended only for use by the referring physician, and only in accordance with law. If you received this in error, call [phone]. Page 2 of 2 Soft tissues: There is a small to moderate umbilical hernia. There is no evidence of incarceration. IMPRESSION: 1. A small sliding hiatal hernia is present. 2. Bilateral nonobstructive renal calculi measuring up to 7 mm in the left kidney. 3. There is a 6 mm obstructive ureteral calculus along with a 2-3 mm ureteral calculus just proximal, both located in the distal left ureter resulting in mild proximal hydroureteronephrosis. There is mild periureteral and perinephric stranding. No urinoma demonstrated. Thank you for allowing us to participate in the care of your patient. Dictated and Authenticated by: Fred Monsalve MD 05/19/2020 5:20 PM Central Time ([place] & [place]) CELIA"
== END 2020-05-19 17:15 | disposition home or self-care (01) ==
LOC: JD.ED 13:49
DX: N13.2 Hydronephrosis with renal and ureteral calculous obstruction (principal); Z88.8 Allergy status to other drugs, medicaments and biological substances; Z91.041 Radiographic dye allergy status
CPT/HCPCS: 36415; 74176; 80053; 81001; 99284; A9270; J8597

== ENCOUNTER 2020-07-06 11:03 | Emergency (ER) | payer MEDICAID ==
[2020-07-06] MEDS ORDERED: HYDROmorphone 1 MG/ML Syringe IVPUSH STA (11:27)
[2020-07-06] MEDS ORDERED: Promethazine 25 MG in Sodium Chloride 0.9% 50 ML IV ONE (11:28)
[2020-07-06] MEDS ORDERED: Sodium Chloride 0.9% 1,000 ML IV SCH (11:30)
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
[2020-07-06] MEDS ORDERED: methylPREDNISolone Sodium Succinate 125 MG/2 ML SDV IVPUSH ONE (13:10)
== END 2020-07-06 13:36 | disposition home or self-care (01) ==
LOC: JD.ED 11:03
DX: K50.90 Crohn's disease, unspecified, without complications (principal); Z88.8 Allergy status to other drugs, medicaments and biological substances; Z91.041 Radiographic dye allergy status; Z90.49 Acquired absence of other specified parts of digestive tract
CPT/HCPCS: 36415; 80053; 81001; 85007; 85027; 86140; 96365; 96375; 99284; J1170; J2550; J2930; J7030

== ENCOUNTER 2020-08-14 22:46 | Emergency (ER) | payer MEDICAID ==
[2020-08-14] MEDS ORDERED: HYDROmorphone 0.5 MG/0.5 ML Syringe IVPUSH ONE (23:44)
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
[2020-08-15] MEDS ORDERED: Magnesium Sulfate/Water 4 GM in Premix Bag 1 BAG IV ONE (00:29)
[2020-08-15] MEDS ORDERED: Sodium Chloride 0.9% 1,000 ML IV SCH (00:30)
[2020-08-15] MEDS ORDERED: diphenhydrAMINE 50 MG/ML SDV IVPUSH STA (00:32)
[2020-08-15] MEDS ORDERED: Potassium Chloride 20 MEQ Tab.ER PO ONE (03:56)
--- NOTE | 2020-08-15 08:57 | CR ---
Chest: Portable view of the chest was obtained. Comparison: No prior chest x-ray is available, subsequent chest CT is available. Heart size and mediastinum are normal. Lungs are clear with no acute parenchymal change. No acute bony abnormality is appreciated. Impression: 1. Nothing acute is seen on portable chest x-ray. Diagnostic code #1
--- NOTE | 2020-08-15 09:07 | CT ---
CT angiogram of chest Technique: Multiple axial images were obtained from above the dome of the diaphragm inferiorly through the lung bases. Study performed as a pulmonary angiogram protocol. Comparison: No prior chest CT is available. Findings: Pulmonary arteries are moderately well opacified. No filling defects are appreciated to indicate definite pulmonary emboli. Thoracic aorta shows no aneurysm. No pericardial thickening is identified. Small abnormality is seen within the posterior right lobe of the liver measuring about 6 mm which has Hounsfield unit measurements of a cyst. Small nonobstructing calculi appear to be present within both kidneys. Largest renal calculi measures approximately 6 mm. No axillary adenopathy is appreciated. Lung window settings were obtained. No definite acute parenchymal change is appreciated within either lung. No pleural effusions or pneumothorax are seen. Bone window settings were reviewed. No acute osseous abnormality is appreciated. Impression: 1. No findings of pulmonary embolism. 2. 6 mm abnormality is identified within the posterior right lobe of the liver which has Hounsfield unit measurements of a cyst. 3. Small nonobstructing calculi within both kidneys. 4. Nothing acute is otherwise seen. Diagnostic code #2 I agree with preliminary report from [facility], finalized on 08/15/20, 3:03 AM DATA [employer]IST
== END 2020-08-15 05:03 | disposition home or self-care (01) ==
LOC: JD.ED 22:46
DX: R07.89 Other chest pain (principal); E83.42 Hypomagnesemia; E87.6 Hypokalemia; Z91.041 Radiographic dye allergy status; E66.9 Obesity, unspecified; Z68.35 Body mass index [BMI] 35.0-35.9, adult; Z88.8 Allergy status to other drugs, medicaments and biological substances
CPT/HCPCS: 36415; 71045; 71275; 80053; 83735; 83880; 84484; 85007; 85027; 85379; 93005; 96365; 96366; 96375; 99285; A9270; J1170; J1200; J3475; J7030; 93010; 99284

== ENCOUNTER 2020-08-21 08:56 | Emergency (ER) | payer MEDICAID ==
[2020-08-21] MEDS ORDERED: Ketorolac 30 MG/ML SDV IVPUSH ONE (09:19)
[2020-08-21] MEDS ORDERED: Sodium Chloride 0.9% 10 ML Syringe FLUSH PRN (09:19)
[2020-08-21] MEDS ORDERED: Sodium Chloride 0.9% 1,000 ML IV ONE (09:20)
[2020-08-21] MEDS ORDERED: Promethazine 25 MG in Sodium Chloride 0.9% 50 ML IV ONE (09:22)
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
[2020-08-21] MEDS ORDERED: HYDROmorphone 0.5 MG/0.5 ML Syringe IVPUSH ONE ×2 (10:07→11:36)
[2020-08-21] MEDS ORDERED: Magnesium Sulfate/Water 2 GM/50 ML BAG IV ONE (10:39)
== END 2020-08-21 12:58 | disposition home or self-care (01) ==
LOC: JD.ED 08:56
DX: N23 Unspecified renal colic (principal); E83.42 Hypomagnesemia; E66.9 Obesity, unspecified; Z68.30 Body mass index [BMI] 30.0-30.9, adult; Z88.8 Allergy status to other drugs, medicaments and biological substances; Z91.041 Radiographic dye allergy status
CPT/HCPCS: 36415; 80053; 81001; 83735; 85025; 96365; 96366; 96367; 96375; 96376; 99284; J1170; J1885; J2550; J3475; J7030

== ENCOUNTER 2020-10-21 01:25 | Emergency (ER) | payer MEDICAID ==
[2020-10-21] MEDS ORDERED: Sodium Chloride 0.9% 1,000 ML IV SCH (02:00)
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
[2020-10-21] MEDS ORDERED: diphenhydrAMINE 50 MG/ML SDV IVPUSH ONE (04:13)
--- NOTE | 2020-10-21 08:03 | US ---
Limited abdominal ultrasound: Multiple real-time images of the upper right abdomen were obtained. Comparison: Previous noncontrast CT study performed at 2:30 AM on the same day. Liver contains no focal abnormality. Gallbladder contains no shadowing gallstones. No gallbladder wall thickening is believed to be present. Common bile duct is slightly prominent at 9 mm. No findings of stone within the common bile duct are seen. Proximal aorta shows no aneurysm. Pancreas is poorly seen. Inferior vena cava is patent. Main portal vein shows normal hepatopedal flow. Right kidney shows no hydronephrosis. Right kidney has a length of 11.6 cm. Impression: 1. No evidence of gallstones. No gallbladder wall thickening is noted. Common bile duct is slightly dilated at 9 mm but no discrete stones are seen within the bile duct. 2. No acute abnormality is appreciated. Diagnostic code #3
--- NOTE | 2020-10-21 09:04 | CR ---
Chest: Frontal view of the chest was obtained. Comparison: Prior chest x-ray of 08/14/20. Heart size and mediastinum are normal. Lungs are clear with no acute parenchymal change. No acute osseous finding is seen. Impression: 1. Nothing acute is seen on frontal chest x-ray. Diagnostic code #1
[2020-10-21] MEDS ORDERED: methylPREDNISolone Sodium Succinate 125 MG/2 ML SDV IVPUSH ONE (09:07)
[2020-10-21] MEDS ORDERED: Acetaminophen/oxyCODONE 325-5 MG Tab PO ONE (09:10)
[2020-10-21] MEDS ORDERED: Promethazine 25 MG Tab PO ONE (09:10)
--- NOTE | 2020-10-21 09:13 | CT ---
CT abdomen and pelvis Technique: Multiple axial sections were obtained from above the dome of the diaphragm inferiorly through the pubic symphysis. Intravenous and oral contrast was not utilized. Reconstructed coronal and sagittal images were obtained. Comparison: Prior CT stone protocol study of 03/08/20. Findings: Visualized lung bases show nothing acute. Minimal hiatal hernia is noted. Noncontrast appearance of the liver shows no focal parenchymal abnormality. Spleen is within normal limits. Adrenal glands show no nodule. No discrete abnormality is appreciated within the pancreas. Small calcifications are seen within both kidneys. Calcifications are fairly stable from prior CT exam. No ureteral dilatation or ureteral stone is seen. No bladder calculi are seen. Gallbladder contains no calcified gallstones. Abdominal aorta shows no aneurysm. No retroperitoneal adenopathy or mesenteric abnormalities are seen. Fat-containing umbilical hernia is noted. Prior surgery is noted off the distal cecum. Appendix is not visualized. No pelvic mass or adenopathy is seen. No free fluid or inflammatory change is appreciated. Minimal diverticulosis is noted without evidence of diverticulitis. Impression: 1. Stable renal calculi from prior study. 2. No ureteral dilatation or ureteral stone is seen. 3. Prior surgery off the cecum. Appendix is not visualized. Minimal hiatal hernia is noted. 4. Nothing acute is appreciated on noncontrast CT study of the abdomen and pelvis. Diagnostic code #2 I agree with preliminary report from [facility], finalized on 10/21/20, 4:21 AM CDT
== END 2020-10-21 09:35 | disposition home or self-care (01) ==
LOC: JD.ED 01:25
DX: R10.11 Right upper quadrant pain (principal); R11.14 Bilious vomiting; R11.0 Nausea; E66.9 Obesity, unspecified; Z68.39 Body mass index [BMI] 39.0-39.9, adult; Z87.19 Personal history of other diseases of the digestive system; Z88.8 Allergy status to other drugs, medicaments and biological substances; Z91.041 Radiographic dye allergy status
CPT/HCPCS: 36415; 71045; 74176; 76705; 80053; 80306; 81003; 82150; 83690; 83735; 84484; 85007; 85027; 86140; 93005; 96374; 96375; 99284; A9270; J1200; J2930; J7030; J8597; 93010

== ENCOUNTER 2021-02-15 11:10 | Emergency (ER) | payer SELFPAY ==
[2021-02-15] MEDS ORDERED: predniSONE 20 MG Tab PO ONE (11:53)
[2021-02-15] MEDS ORDERED: Acetaminophen/oxyCODONE 325-5 MG Tab PO ONE (11:53)
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
== END 2021-02-15 12:27 | disposition home or self-care (01) ==
LOC: JD.ED 11:10
DX: K50.10 Crohn's disease of large intestine without complications (principal); E66.9 Obesity, unspecified; Z68.33 Body mass index [BMI] 33.0-33.9, adult; Z88.8 Allergy status to other drugs, medicaments and biological substances; Z91.041 Radiographic dye allergy status; Z79.899 Other long term (current) drug therapy
CPT/HCPCS: 99283; A9270; J7512

== ENCOUNTER 2021-04-30 10:32 | Emergency (ER) | payer SELFPAY ==
[2021-04-30] MEDS ORDERED: Lactated Ringers 1,000 ML IV ONE (10:59)
[2021-04-30] MEDS ORDERED: Morphine 4 MG/ML Syringe IVPUSH ONE (10:59)
[2021-04-30] MEDS ORDERED: Promethazine 25 MG/ML SDV IM ONE (10:59)
[2021-04-30] MEDS ORDERED: Morphine 4 MG/ML Syringe ONE (11:15)
[2021-04-30] MEDS ORDERED: diphenhydrAMINE 50 MG/ML SDV ONE (11:35)
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
[2021-04-30] MEDS ORDERED: diphenhydrAMINE 50 MG/ML SDV IVPUSH ONE ×2 (11:36→13:31)
[2021-04-30] MEDS ORDERED: Ketorolac 15 MG/ML SDV IVPUSH ONE (12:08)
[2021-04-30] MEDS ORDERED: Sodium Chloride 0.9% 10 ML Syringe FLUSH PRN (13:29)
[2021-04-30] MEDS ORDERED: Iopamidol 612 MG/ML 100 ML Bottle IVPUSH ONE (13:29)
[2021-04-30] MEDS ORDERED: Diatrizoate Meglumine/Diatrizoate Sodium 37% 120 ML Bottle PO ONE (13:29)
--- NOTE | 2021-04-30 14:33 | CT ---
CT abdomen and pelvis Technique: Multiple axial sections were obtained from above the dome of the diaphragm inferiorly through the pubic symphysis. Intravenous contrast was utilized. No oral contrast has been given. Reconstructed coronal and sagittal images were obtained. Delayed images were also obtained through the abdomen and pelvis. Comparison: Prior noncontrast CT abdomen and pelvis of 01/29/21. Findings: Visualized lung bases show nothing acute. Slight diminished density is noted next to the ligamentum teres fissure which is felt to be a normal variant. No additional abnormality is seen within the liver. Spleen size is normal. Adrenal glands show no nodule. Pancreas shows no abnormality. Gallbladder contains no calcified gallstones. Kidneys show symmetric contrast enhancement. Calcifications are seen within both kidneys compatible with nonobstructing calculi. Largest stone is within the left kidney measuring 1.0 cm. Abdominal aorta shows no aneurysm. No retroperitoneal adenopathy or mesenteric abnormalities are seen. Fat-containing umbilical hernia is noted. Surgical material is seen around the cecum. Appendix is not visualized. No pelvic mass or adenopathy is seen. No free fluid or inflammatory change is seen. No discrete bowel dilatation is seen. Bone window settings were reviewed which show no acute abnormality. Impression: 1. Previous surgery around the cecum. 2. Low density next to the ligamentum teres fissure which is felt to be incidental. 3. Nonobstructing calculi within both kidneys. 4. No acute abnormality is appreciated on CT study of the abdomen and pelvis. Diagnostic code #2
[2021-04-30] MEDS ORDERED: Haloperidol Lactate 5 MG/ML SDV IVPUSH ONE (14:58)
== END 2021-04-30 15:30 | disposition home or self-care (01) ==
LOC: JD.ED 10:32
DX: R10.31 Right lower quadrant pain (principal); R10.11 Right upper quadrant pain; E66.9 Obesity, unspecified; Z68.30 Body mass index [BMI] 30.0-30.9, adult; Z88.1 Allergy status to other antibiotic agents; Z91.041 Radiographic dye allergy status; Z88.8 Allergy status to other drugs, medicaments and biological substances
CPT/HCPCS: 36415; 74177; 80053; 83605; 83690; 85025; 85652; 86140; 96374; 96375; 96376; 99284; J1200; J1630; J1885; J2270; J7120; Q9967; Q9963

== ENCOUNTER 2021-08-11 11:22 | Emergency (ER) | payer SELFPAY ==
[2021-08-11] MEDS ORDERED: Sodium Chloride 0.9% 10 ML Syringe FLUSH PRN (11:49)
[2021-08-11] MEDS ORDERED: Sodium Chloride 0.9% 1,000 ML IV SCH (12:00)
[2021-08-11] MEDS ORDERED: HYDROmorphone 0.5 MG/0.5 ML Syringe IVPUSH ONE ×2 (12:07→14:26)
[2021-08-11] MEDS ORDERED: Sodium Chloride 0.9% 1,000 ML IV STA (12:07)
[2021-08-11] MEDS ORDERED: diphenhydrAMINE 50 MG/ML SDV IVPUSH ONE (12:17)
[2021-08-11] MEDS ORDERED: Iopamidol 612 MG/ML 100 ML Bottle IVPUSH ONE (12:57)
[2021-08-11] MEDS ORDERED: Promethazine 25 MG in Sodium Chloride 0.9% 50 ML IV ONE (14:25)
[2021-08-11] MEDS ORDERED: metroNIDAZOLE/Normal Saline 500 MG in Premix Bag 1 BAG IV ONE (14:41)
[2021-08-11] MEDS ORDERED: Levofloxacin/Dextrose 5%-Water 750 MG in Premix Bag 1 BAG IV ONE (14:41)
[2021-08-11] MEDS ORDERED: Acetaminophen/oxyCODONE 325-5 MG Tab PO ONE (16:29)
== END 2021-08-11 17:55 | disposition home or self-care (01) ==
LOC: JD.ED 11:22
DX: K50.90 Crohn's disease, unspecified, without complications (principal); E66.9 Obesity, unspecified; Z68.32 Body mass index [BMI] 32.0-32.9, adult; Z91.041 Radiographic dye allergy status; Z88.8 Allergy status to other drugs, medicaments and biological substances; Z79.899 Other long term (current) drug therapy
CPT/HCPCS: 36415; 74177; 80053; 83690; 83735; 85025; 86140; 96365; 96368; 96375; 96376; 99284; A9270; J1170; J1200; J1956; J2550; J3490; J7030

== ENCOUNTER 2021-08-18 09:42 | Emergency (ER) | payer SELFPAY ==
[2021-08-18] MEDS ORDERED: Sodium Chloride 0.9% 10 ML Syringe FLUSH PRN (10:27)
[2021-08-18] MEDS ORDERED: HYDROmorphone 0.5 MG/0.5 ML Syringe IVPUSH ONE (10:27)
[2021-08-18] MEDS ORDERED: Sodium Chloride 0.9% 1,000 ML IV SCH (10:30)
[2021-08-18] MEDS ORDERED: diphenhydrAMINE 50 MG/ML SDV IVPUSH ONE (10:44)
[2021-08-18] MEDS ORDERED: Acetaminophen/HYDROcodone 325-5 MG Tab PO ONE (12:14)
[2021-08-18] MEDS ORDERED: Ketorolac 30 MG/ML SDV IVPUSH SCH (12:15)
== END 2021-08-18 13:12 | disposition home or self-care (01) ==
LOC: JD.ED 09:42
DX: K50.90 Crohn's disease, unspecified, without complications (principal); E66.9 Obesity, unspecified; Z68.33 Body mass index [BMI] 33.0-33.9, adult; Z91.041 Radiographic dye allergy status; Z88.8 Allergy status to other drugs, medicaments and biological substances
CPT/HCPCS: 36415; 74019; 80053; 85025; 86140; 96374; 96375; 99284; A9270; J1170; J1200; J1885; J7030

== ENCOUNTER 2021-11-12 11:37 | Emergency (ER) | payer SELFPAY ==
[2021-11-12] MEDS ORDERED: Sodium Chloride 0.9% 10 ML Syringe FLUSH PRN ×2 (12:00→12:19)
[2021-11-12] MEDS ORDERED: Sodium Chloride 0.9% 1,000 ML IV STA (12:04)
[2021-11-12] MEDS ORDERED: Ketorolac 30 MG/ML SDV IVPUSH ONE (12:05)
[2021-11-12] MEDS ORDERED: HYDROmorphone 0.5 MG/0.5 ML Syringe IVPUSH ONE (12:05)
[2021-11-12] MEDS ORDERED: diphenhydrAMINE 50 MG/ML SDV IVPUSH ONE (12:05)
[2021-11-12] MEDS ORDERED: Iopamidol 612 MG/ML 100 ML Bottle IVPUSH ONE (12:19)
[2021-11-12] MEDS ORDERED: Promethazine 25 MG in Sodium Chloride 0.9% 50 ML IV ONE (14:35)
== END 2021-11-12 16:13 | disposition home or self-care (01) ==
LOC: JD.ED 11:37
DX: K52.9 Noninfective gastroenteritis and colitis, unspecified (principal); E66.9 Obesity, unspecified; Z68.33 Body mass index [BMI] 33.0-33.9, adult; Z91.041 Radiographic dye allergy status; Z88.8 Allergy status to other drugs, medicaments and biological substances
CPT/HCPCS: 36415; 74177; 80053; 85025; 86140; 96365; 96375; 99284; J1170; J1200; J1885; J2550; J3490; J7030; Q9967

== ENCOUNTER 2021-12-11 22:41 | Emergency (ER) | payer SELFPAY ==
[2021-12-11] MEDS ORDERED: HYDROmorphone 1 MG/ML Syringe IVPUSH STA (23:15)
[2021-12-11] MEDS ORDERED: Ondansetron 4 MG/2 ML SDV IVPUSH ONE (23:15)
[2021-12-11] MEDS ORDERED: Sodium Chloride 0.9% 1,000 ML IV ONE (23:16)
[2021-12-11] MEDS ORDERED: diphenhydrAMINE 50 MG/ML SDV IVPUSH ONE (23:49)
[2021-12-12] MEDS ORDERED: Sodium Chloride 0.9% 1,000 ML IV ONE ×2 (00:57→00:58)
== END 2021-12-12 03:50 | disposition home or self-care (01) ==
LOC: JD.ED 22:41
DX: R10.32 Left lower quadrant pain (principal); R11.2 Nausea with vomiting, unspecified; R19.7 Diarrhea, unspecified; E66.9 Obesity, unspecified; Z68.33 Body mass index [BMI] 33.0-33.9, adult; Z79.899 Other long term (current) drug therapy; Z90.49 Acquired absence of other specified parts of digestive tract; Z88.8 Allergy status to other drugs, medicaments and biological substances; Z91.041 Radiographic dye allergy status
CPT/HCPCS: 36415; 74177; 80053; 83690; 85007; 85027; 96361; 96374; 96375; 99284; J1170; J1200; J2405; J7030; 99283

== ENCOUNTER 2022-03-07 18:04 | Emergency (ER) | payer SELFPAY | END 2022-03-07 18:59 | LOC: JD.ED 18:04 | DX: Z53.21 Procedure and treatment not carried out due to patient leaving prior to being seen by health care provider (principal) ==

== ENCOUNTER 2022-05-08 11:45 | Emergency (ER) | payer SELFPAY ==
[2022-05-08] MEDS ORDERED: Tamsulosin 0.4 MG Cap.ER PO STA (12:51)
[2022-05-08] MEDS ORDERED: HYDROmorphone 1 MG/ML Syringe IVPUSH STA (12:51)
[2022-05-08] MEDS ORDERED: Sodium Chloride 0.9% 10 ML Syringe FLUSH PRN (12:52)
[2022-05-08] MEDS ORDERED: Sodium Chloride 0.9% 1,000 ML IV SCH (13:00)
[2022-05-08] MEDS ORDERED: Promethazine 25 MG in Sodium Chloride 0.9% 50 ML IV ONE (13:43)
== END 2022-05-08 17:37 | disposition home or self-care (01) ==
LOC: JD.ED 11:45
DX: N20.1 Calculus of ureter (principal); E66.9 Obesity, unspecified; Z68.32 Body mass index [BMI] 32.0-32.9, adult; Z88.8 Allergy status to other drugs, medicaments and biological substances; Z91.041 Radiographic dye allergy status; Z90.49 Acquired absence of other specified parts of digestive tract
CPT/HCPCS: 36415; 74176; 80053; 81001; 85025; 96361; 96365; 96375; 99284; A9270; J1170; J2550; J3490; J7030

== ENCOUNTER 2022-05-23 14:02 | Emergency (ER) | payer SELFPAY | END 2022-05-23 16:31 | disposition home or self-care (01) | LOC: JD.ED 14:02 | DX: N20.0 Calculus of kidney (principal); E66.9 Obesity, unspecified; Z68.32 Body mass index [BMI] 32.0-32.9, adult; Z88.8 Allergy status to other drugs, medicaments and biological substances; Z91.041 Radiographic dye allergy status; Z79.899 Other long term (current) drug therapy | CPT/HCPCS: 36415; 80053; 85025; 99284 ==

== ENCOUNTER 2022-10-04 15:07 | Emergency (ER) | payer SELFPAY | END 2022-10-04 17:45 | disposition home or self-care (01) | LOC: JD.ED 15:07 | DX: R10.30 Lower abdominal pain, unspecified (principal); R11.0 Nausea; R19.7 Diarrhea, unspecified; Z88.8 Allergy status to other drugs, medicaments and biological substances; Z91.041 Radiographic dye allergy status; Z88.5 Allergy status to narcotic agent; Z79.899 Other long term (current) drug therapy | CPT/HCPCS: 99282; 99283 ==

== ENCOUNTER 2022-10-11 12:09 | Emergency (ER) | payer SELFPAY ==
[2022-10-11] MEDS ORDERED: Ketorolac 60 MG/2 ML SDV IM ONE (12:52)
== END 2022-10-11 13:15 | disposition home or self-care (01) ==
LOC: JD.ED 12:09
DX: K02.9 Dental caries, unspecified (principal); E66.9 Obesity, unspecified; Z68.35 Body mass index [BMI] 35.0-35.9, adult; Z79.899 Other long term (current) drug therapy; Z88.8 Allergy status to other drugs, medicaments and biological substances; Z91.041 Radiographic dye allergy status
CPT/HCPCS: 96372; 99282; J1885; 99283

== ENCOUNTER 2022-10-23 15:54 | Emergency (ER) | payer SELFPAY ==
[2022-10-23] MEDS ORDERED: Ondansetron 4 MG/2 ML SDV IVPUSH ONE (16:29)
[2022-10-23] MEDS ORDERED: HYDROmorphone 1 MG/ML Syringe IVPUSH ONE ×2 (16:29→19:17)
[2022-10-23] MEDS ORDERED: predniSONE 20 MG Tab PO STA (16:30)
[2022-10-23] MEDS ORDERED: Sodium Chloride 0.9% 1,000 ML IV ONE (16:33)
[2022-10-23] MEDS ORDERED: diphenhydrAMINE 50 MG/ML SDV IVPUSH ONE (17:11)
[2022-10-23 17:34] LABS: ESTIMATED GFR 86 mL/min (>60)
[2022-10-23] MEDS ORDERED: Potassium Chloride 20 MEQ Tab.ER PO ONE (18:00)
== END 2022-10-23 19:45 | disposition home or self-care (01) ==
LOC: JD.ED 15:54
DX: K50.919 Crohn's disease, unspecified, with unspecified complications (principal); E66.9 Obesity, unspecified; Z68.31 Body mass index [BMI] 31.0-31.9, adult; Z91.041 Radiographic dye allergy status; Z88.8 Allergy status to other drugs, medicaments and biological substances
CPT/HCPCS: 36415; 80053; 81001; 83690; 83735; 85007; 85027; 86140; 96361; 96374; 96375; 99284; A9270; J1170; J1200; J7030; J7512

== ENCOUNTER 2023-05-26 18:51 | Emergency (ER) | payer SELFPAY | END 2023-05-26 19:36 | disposition home or self-care (01) | LOC: JD.ED 18:51 | DX: Z02.89 Encounter for other administrative examinations (principal); F19.10 Other psychoactive substance abuse, uncomplicated; E66.9 Obesity, unspecified; Z68.34 Body mass index [BMI] 34.0-34.9, adult; Z90.49 Acquired absence of other specified parts of digestive tract; Z88.8 Allergy status to other drugs, medicaments and biological substances; Z91.041 Radiographic dye allergy status | CPT/HCPCS: 99282 ==

== ENCOUNTER 2023-06-12 17:29 | Emergency (ER) | payer SELFPAY | END 2023-06-12 19:00 | disposition left against medical advice (07) | LOC: JD.ED 17:29 | DX: N47.2 Paraphimosis (principal); E66.9 Obesity, unspecified; Z91.041 Radiographic dye allergy status; Z88.5 Allergy status to narcotic agent; Z88.8 Allergy status to other drugs, medicaments and biological substances; Z68.35 Body mass index [BMI] 35.0-35.9, adult | CPT/HCPCS: 99282; 99283 ==